=== PATIENT | female | born 1980 | race Hispanic/Latino ===

== ENCOUNTER 2021-04-17 11:04 | Emergency (ER) | payer OTHER ==
[~2021-04-17] VITALS: Ht 165.1 cm; Wt 90.7 kg
[2021-04-17] MEDS ORDERED: HYDROCODONE/ACETAMINOPHEN 10/325 MG TAB PO ONE (12:00)
[2021-04-17 12:05] LABS: BASOPHILS % (AUTO) 0.6 % (0.0-5.0); EOSINOPHILS % (AUTO) 1.5 % (0.0-8.0); HEMATOCRIT 39.7 % (36-48); LYMPHOCYTES % (AUTO) 29.3 % (21.0-51.0); MEAN CORPUSCULAR HEMOGLOBIN 30.6 pg (27.0-33.0); MEAN CORPUSCULAR VOLUME 92.8 fL (79-99); MONOCYTES % (AUTO) 7.9 % (3.0-13.0); NEUTROPHILS % (AUTO) 60.1 % (40.0-77.0); PLATELET COUNT (AUTO) 201 K/uL (130-400); RED BLOOD CELL COUNT(AUTO) 4.28 MIL/uL (4.00-5.50); RED CELL DISTRIBUTION WIDTH 12.6 % (11.0-15.5); WHITE BLOOD COUNT (AUTO) 6.5 K/uL (4.8-10.8)
[2021-04-17 12:14] LABS: CREATININE 0.8 mg/dL (0.5-1.5); POTASSIUM 4.2 mmol/L (3.5-5.1)
[2021-04-17 12:19] LABS: APPEARANCE,URINE Clear (CLEAR); BILIRUBIN,URINE Negative (NEGATIVE); COLOR,URINE Yellow (YELLOW); GLUCOSE, URINE (UA) Negative (NEGATIVE); KETONES,URINE Negative (NEGATIVE); LEUKOCYTE ESTERASE ,URINE Negative (NEGATIVE); NITRATE,URINE Negative (NEGATIVE); OCCULT BLOOD,URINE Negative (NEGATIVE); PROTEIN,URINE Negative (NEGATIVE); UROBILINOGEN,URINE 0.2 mg/dL (0.2-1.0)
[2021-04-17 12:19] LABS: ALBUMIN 3.5 g/dL (3.5-5.0); BILIRUBIN,TOTAL 0.3 mg/dL (0.2-1.0); TOTAL PROTEIN, SERUM 6.8 g/dL (6.0-8.3)
[2021-04-17 12:25] LABS: HCG,QUAL RESULT NEGATIVE (NEGATIVE)
[2021-04-17] MEDS ORDERED: NAPR-1180 PO (13:48)
[2021-04-17] MEDS ORDERED: HYDROCODONE/ACETAMINOPHEN 10/325 MG TAB ONE (13:54)
[2021-04-17 15:00] VITALS: BP 120/78
== END 2021-04-17 15:02 | disposition home or self-care (01) ==
LOC: EDH 11:04
DX: R10.2 Pelvic and perineal pain (principal); R73.09 Other abnormal glucose; E66.9 Obesity, unspecified; Z79.899 Other long term (current) drug therapy
CPT/HCPCS: 36415; 76856; 80053; 81003; 81025; 85025

== ENCOUNTER 2023-06-06 06:11 | Day surgery (SDC) | payer MEDICAID ==
[2023-06-01 08:31] LABS: BASOPHILS # (AUTO) 0.05 K/uL (0.00-0.20); BASOPHILS % (AUTO) 0.8 % (0.0-5.0); EOSINOPHILS % (AUTO) 1.5 % (0.0-8.0); HEMATOCRIT 42.4 % (36-48); IMMATURE GRANULOCYTE ABSOLUTE 0.02 K/uL (0-1); LYMPHOCYTES # (AUTO) 2.1 K/uL (1.0-4.8); MEAN CORPUSCULAR HEMOGLOBIN 29.3 pg (27.0-33.0); MEAN CORPUSCULAR HGB CONC 32.3 g/dL (32.0-36.0); MEAN CORPUSCULAR VOLUME 90.8 fL (79-99); MONOCYTES # (AUTO) 0.5 K/uL (0.1-1.0); MONOCYTES % (AUTO) 7.9 % (3.0-13.0); NEUTROPHILS # (AUTO) 3.9 K/uL (1.8-7.7); NEUTROPHILS % (AUTO) 58.5 % (40.0-77.0); PLATELET COUNT (AUTO) 209 K/uL (130-400); RED BLOOD CELL COUNT(AUTO) 4.67 MIL/uL (4.00-5.50); RED CELL DISTRIBUTION WIDTH 13.2 % (11.0-15.5); WHITE BLOOD COUNT (AUTO) 6.6 K/uL (4.8-10.8)
[2023-06-01 08:46] LABS: CREATININE 0.7 mg/dL (0.5-1.5); POTASSIUM 4.2 mmol/L (3.5-5.1)
[2023-06-01 09:10] VITALS: BP 110/68; PULSE 85; RESP 18
[2023-06-06] VITALS (17 sets, daily range): BP systolic 11–124; BP diastolic 57–77; PULSE 50–83; RESP 11–21
[~2023-06-06] VITALS: Ht 165.1 cm; Wt 89.8 kg
[~2023-06-06 06:11] MED LIST: LIRA0.6P2 SQ; METF-444 PO; ROSU20TA73 PO
[2023-06-06] MEDS ORDERED: CEFAZOLIN SODIUM 2 GM VIAL ONE (06:29)
[2023-06-06] MEDS ORDERED: 0.9%NACL 1000ML 1,000 ML IV ONE (06:29)
[2023-06-06] MEDS ORDERED: LIDOCAINE PF 100MG/5ML (2%) SYRINGE 5ML ONE (07:22)
[2023-06-06] MEDS ORDERED: FENTANYL CITRATE PF 50 MCG/1 ML 2ML VIAL ONE ×2 (07:23→09:04)
[2023-06-06] MEDS ORDERED: ROCURONIUM 10MG/1ML SYR 10 MG/ML ML ONE ×2 (07:23→09:06)
[2023-06-06] MEDS ORDERED: PROPOFOL 10 MG/ML 20ML VIAL IV ONE (07:23)
[2023-06-06] MEDS ORDERED: MIDAZOLAM HCL 1 MG/ML 2ML VIAL ONE (07:23)
[2023-06-06] MEDS ORDERED: BUPIVACAINE/PF 0.25% 30ML VIAL IJ ONE ×2 (07:31→08:47)
[2023-06-06] MEDS ORDERED: DEXAMETHASONE SOD PHOSPHATE 4 MG/ML 1ML VIAL ONE (09:04)
[2023-06-06] MEDS ORDERED: KETOROLAC 30MG VIAL (30MG/ML) ONE ×2 (09:04→09:12)
[2023-06-06] MEDS ORDERED: ONDANSETRON 4MG INJ ONE (09:04)
== END 2023-06-06 11:50 | disposition home or self-care (01) ==
LOC: DAH 06:11
PROVIDERS: ATTEND Surgery
DX: K80.10 Calculus of gallbladder with chronic cholecystitis without obstruction (principal); Z20.822 Contact with and (suspected) exposure to COVID-19; Z90.49 Acquired absence of other specified parts of digestive tract; Z98.891 History of uterine scar from previous surgery; Z82.49 Family history of ischemic heart disease and other diseases of the circulatory system; Z83.3 Family history of diabetes mellitus; Z80.9 Family history of malignant neoplasm, unspecified; Z79.84 Long term (current) use of oral hypoglycemic drugs; Z79.899 Other long term (current) drug therapy; Z98.890 Other specified postprocedural states
CPT/HCPCS: 80048; 84703; 85025; 36415; 47562; 82948 ×2; 81025; 88304; A6260; J1100; A4663; J7030 ×2; J3010 ×2; J3490 ×4; J2250; J2405; J1885 ×2; J0690; C1769 ×3; A4649 ×2; A4215; A4223; A4222; A4221; A4600; J2001; J2704; G0168

== ENCOUNTER 2023-08-05 08:15 | Emergency (ER) | payer MEDICAID, OTHER ==
[~2023-08-05] VITALS: Ht 165.1 cm; Wt 81.6 kg
[2023-08-05 08:16] VITALS: BP 121/71; PULSE 74; RESP 18
[2023-08-05] MEDS ORDERED: POLY10DR22 OP (08:45)
== END 2023-08-05 09:04 | disposition home or self-care (01) ==
LOC: EDH 08:15
DX: H10.89 Other conjunctivitis (principal); H57.12 Ocular pain, left eye; E11.9 Type 2 diabetes mellitus without complications; E66.9 Obesity, unspecified; Z79.84 Long term (current) use of oral hypoglycemic drugs; Z79.899 Other long term (current) drug therapy; Z90.49 Acquired absence of other specified parts of digestive tract; Z98.890 Other specified postprocedural states

== ENCOUNTER 2024-03-04 12:10 | Emergency (ER) | payer BC, OTHER ==
[~2024-03-04] VITALS: Ht 165.1 cm; Wt 86.2 kg
[~2024-03-04 12:10] MED LIST changes: +POLY10DR22 OP
[2024-03-04 12:14] VITALS: BP 109/67; PULSE 84; RESP 17; O2SAT 100
[2024-03-04 12:34] LABS: APPEARANCE,URINE CLEAR (CLEAR); BILIRUBIN,URINE NEGATIVE (NEGATIVE); COLOR,URINE LIGHT-YELLOW (YELLOW); GLUCOSE, URINE (UA) >=1000 mg/dL (NEGATIVE); KETONES,URINE NEGATIVE (NEGATIVE); LEUKOCYTE ESTERASE ,URINE 25 Leu/uL (NEGATIVE); NITRATE,URINE NEGATIVE (NEGATIVE); OCCULT BLOOD,URINE LARGE (NEGATIVE); PH,URINE 5.5 (5.0-8.0); PROTEIN,URINE NEGATIVE (NEGATIVE); UROBILINOGEN,URINE 0.2 mg/dL (0.2-1.0)
[2024-03-04 12:41] LABS: ADD UA MICROSCOPIC YES
[2024-03-04 12:44] LABS: MUCUS,URINE RARE LPF (None Seen); RBC,URINE 51-100 /HPF (0-1); SQUAMOUS EPITHELIAL CELL,UR RARE /HPF (0-2)
[2024-03-04 12:47] LABS: BACTERIA,URINE RARE /HPF (None Seen)
[2024-03-04 12:59] LABS: BASOPHILS # (AUTO) 0.06 K/uL (0.00-0.20); BASOPHILS % (AUTO) 0.7 % (0.0-5.0); EOSINOPHILS # (AUTO) 0.17 K/uL (0.00-0.70); EOSINOPHILS % (AUTO) 2.1 % (0.0-8.0); HEMATOCRIT 40.1 % (36-48); IMMATURE GRANULOCYTE ABSOLUTE 0.03 K/uL (0-1); LYMPHOCYTES # (AUTO) 1.7 K/uL (1.0-4.8); LYMPHOCYTES % (AUTO) 20.6 % (21.0-51.0); MEAN CORPUSCULAR HEMOGLOBIN 31.4 pg (27.0-33.0); MEAN CORPUSCULAR HGB CONC 33.9 g/dL (32.0-36.0); MEAN CORPUSCULAR VOLUME 92.6 fL (79-99); MONOCYTES # (AUTO) 0.6 K/uL (0.1-1.0); MONOCYTES % (AUTO) 7.6 % (3.0-13.0); NEUTROPHILS # (AUTO) 5.7 K/uL (1.8-7.7); NEUTROPHILS % (AUTO) 68.6 % (40.0-77.0); PLATELET COUNT (AUTO) 226 K/uL (130-400); RED BLOOD CELL COUNT(AUTO) 4.33 MIL/uL (4.00-5.50); WHITE BLOOD COUNT (AUTO) 8.3 K/uL (4.8-10.8)
[2024-03-04 13:11] LABS: CREATININE 0.8 mg/dL (0.5-1.0); POTASSIUM 3.8 mmol/L (3.5-5.1)
[2024-03-04 13:27] LABS: ALBUMIN 3.8 g/dL (3.5-5.0); BILIRUBIN,TOTAL 0.4 mg/dL (0.2-1.0); TOTAL PROTEIN, SERUM 7.4 g/dL (6.0-8.3)
[2024-03-04] MEDS ORDERED: CEPH500B PO (14:12)
[2024-03-04] MEDS: CEFTRIAXONE 1G VIAL IVPB STA (14:13)
[2024-03-04] MEDS: LIDOCAINE HCL 1% 20 ML VIAL ONE (14:37)
== END 2024-03-04 14:38 | disposition home or self-care (01) ==
LOC: EDH 12:10
DX: O02.1 Missed abortion (principal); O23.41 Unspecified infection of urinary tract in pregnancy, first trimester; N39.0 Urinary tract infection, site not specified; Z3A.01 Less than 8 weeks gestation of pregnancy; O24.111 Pre-existing type 2 diabetes mellitus, in pregnancy, first trimester; O99.211 Obesity complicating pregnancy, first trimester; Z79.84 Long term (current) use of oral hypoglycemic drugs; Z79.85 Long-term (current) use of injectable non-insulin antidiabetic drugs; Z79.899 Other long term (current) drug therapy; Z90.49 Acquired absence of other specified parts of digestive tract
CPT/HCPCS: 99284; 96365; 76801; 80053; 84703; 84702; 85025; 86900; 86901; 87088; 81001; 36415; J0696

== ENCOUNTER 2024-08-08 09:17 | Emergency (ER) | payer BC ==
[~2024-08-08] VITALS: Ht 165.1 cm; Wt 86.6 kg
[~2024-08-08 09:17] MED LIST changes: +CEPH500B PO; -ROSU20TA73 PO; +ROSU20TA98 PO
[2024-08-08 09:43] LABS: HCG,QUALITATIVE URINE POSITIVE (NEGATIVE)
[2024-08-08 09:44] LABS: BASOPHILS # (AUTO) 0.03 K/uL (0.00-0.20); BASOPHILS % (AUTO) 0.4 % (0.0-5.0); EOSINOPHILS # (AUTO) 0.08 K/uL (0.00-0.70); EOSINOPHILS % (AUTO) 1.2 % (0.0-8.0); HEMATOCRIT 39.5 % (36-48); IMMATURE GRANULOCYTE ABSOLUTE 0.03 K/uL (0-1); LYMPHOCYTES # (AUTO) 1.6 K/uL (1.0-4.8); LYMPHOCYTES % (AUTO) 22.9 % (21.0-51.0); MEAN CORPUSCULAR HEMOGLOBIN 30.8 pg (27.0-33.0); MEAN CORPUSCULAR HGB CONC 33.2 g/dL (32.0-36.0); MEAN CORPUSCULAR VOLUME 92.9 fL (79-99); MONOCYTES # (AUTO) 0.6 K/uL (0.1-1.0); MONOCYTES % (AUTO) 8.1 % (3.0-13.0); NEUTROPHILS # (AUTO) 4.6 K/uL (1.8-7.7); PLATELET COUNT (AUTO) 188 K/uL (130-400); RED BLOOD CELL COUNT(AUTO) 4.25 MIL/uL (4.00-5.50); RED CELL DISTRIBUTION WIDTH 13.2 % (11.0-15.5); WHITE BLOOD COUNT (AUTO) 6.8 K/uL (4.8-10.8)
[2024-08-08 09:52] LABS: CREATININE 0.8 mg/dL (0.5-1.0); POTASSIUM 3.9 mmol/L (3.5-5.1)
[2024-08-08 10:11] LABS: APPEARANCE,URINE CLEAR (CLEAR); BILIRUBIN,URINE NEGATIVE (NEGATIVE); COLOR,URINE LIGHT-YELLOW (YELLOW); GLUCOSE, URINE (UA) >=1000 mg/dL (NEGATIVE); KETONES,URINE NEGATIVE (NEGATIVE); LEUKOCYTE ESTERASE ,URINE NEGATIVE Leu/uL (NEGATIVE); NITRATE,URINE NEGATIVE (NEGATIVE); OCCULT BLOOD,URINE NEGATIVE (NEGATIVE); PH,URINE 7.5 (5.0-8.0); PROTEIN,URINE NEGATIVE (NEGATIVE); SQUAMOUS EPITHELIAL CELL,UR RARE /HPF (0-2); UROBILINOGEN,URINE 0.2 mg/dL (0.2-1.0); WBC,URINE 0-1 /HPF (0-1)
[2024-08-08] MEDS: 0.9%NACL 1000ML 1,000 ML IV ONE (10:39)
[2024-08-08 11:55] VITALS: BP 115/72; PULSE 80; RESP 16; TEMP 98.4; O2SAT 100
== END 2024-08-08 12:07 | disposition home or self-care (01) ==
LOC: EDH 09:17
DX: O20.0 Threatened abortion (principal); R10.2 Pelvic and perineal pain; E11.9 Type 2 diabetes mellitus without complications; E66.9 Obesity, unspecified; Z3A.01 Less than 8 weeks gestation of pregnancy; Z79.84 Long term (current) use of oral hypoglycemic drugs; Z79.85 Long-term (current) use of injectable non-insulin antidiabetic drugs; Z79.899 Other long term (current) drug therapy; Z90.49 Acquired absence of other specified parts of digestive tract; Z98.890 Other specified postprocedural states
CPT/HCPCS: 99284; 96360; 76801; 80048; 84703; 84702; 85025; 81001; 81025; 36415; J7030

== ENCOUNTER 2024-11-01 21:40 | Emergency (ER) | payer BC ==
[~2024-11-01] VITALS: Ht 165.1 cm; Wt 84.8 kg
--- NOTE | 2024-11-01 21:49 | ERN ---
ED Note History of Present Illness Stated Complaint: RASH WITH ITCHING IN BETWEEN LEGS AND GROIN AREA Chief Complaint: Skin Rash/Abscess Time Seen by MD: 21:44 Dictation: This is a 44-year-old female who presented to the emergency room with complaints of itchy rash in the groin area, medial thighs, popliteal folds. All this started about 24 hours ago. She denied eating anything unusual. No history of any change of soaps or detergents. 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 No fever chills or rigors no joint pains. Temperature 98.2 pulse 82 respirations 20 pulse oximetry 100% on room air Chronic medical problems include diabetes mellitus and hypercholesterolemia Allergies: Coded Allergies: No Known Allergies (Unverified Allergy, Unknown, 04/17/21) Home Meds Active Scripts Miconazole Nitrate (Antifungal Cream) 2 % Cream..g., 1 APPL TP BID for 14 Days, #14 GM 0 Refills Prov:REYES CALHOUN MD 11/01/24 Zinc Oxide (Desitin) 13 % Cream..g., 1 APPL TP QID for 5 Days, #57 GM 0 Refills Prov:REYES CALHOUN MD 11/01/24 Cephalexin Monohydrate (Keflex) 500 Mg Cap, 500 MG PO BID for 7 Days, #14 CAP Prov:OLEKSANDR VELA 03/04/24 Polymyxin B Sulf/Trimethoprim (Polytrim Eye Drops) 10,000 Unit-1 Mg/Ml Drops, 10 ML OP every three hours for 10 Days, #1 DROP 0 Refills Prov:DALLIN SCHWAB Sr., MD 08/05/23 Reported Medications Liraglutide (Victoza 3-Franco) 0.6 Mg/0.1 Ml Pen.injctr, 1.8 ML SQ DAILY 06/01/23 Rosuvastatin Calcium (Rosuvastatin Calcium) 20 Mg Tablet, 1 TAB PO DAILY for cholesterol 06/01/23 Metformin HCl (Metformin HCl) 500 Mg Tablet, 1 TAB PO BID 06/01/23 Past Medical History Past Medical History: Diabetes-Type II, High Cholesterol Additional Past Medical Hx: Obese Surgical History: Appendectomy, Family History: Negative Social History: Negative History: Not Applicable : 8 Para: 4 Aborts: 3 RN Note Reviewed/Agreed w/PFSH: Yes Review of System Dictation Constitutional: Negative for fever,chills, and weight loss Eyes: Negative for injury, pain,redness, and discharge ENT: Negative for injury,pain or swelling Cardiovascular: Negative for chest pain, palpitations, and edema Respiratory: Negative for shortness of breath, cough, and wheezing, Abdomen/GI: Negative for abdominal pain, nausea, vomiting, diarrhea, and constipation Back: Negative for injury and pain : Negative for injury, bleeding and discharge MS/Extremity: Negative for injury and deformity Skin: Positive for rash, with the itching in inguinal areas medial thighs and popliteal folds Neuro: Negative for headache, weakness, numbness, tingling, and seizure Psych: Negative for suicide ideation, homicidal ideation, and hallucinations Initial Vital Sign VS Vital Signs Date Time Temp Pulse Resp B/P (MAP) Pulse Ox O2 Delivery O2 Flow Rate FiO2 11/01/24 21:42 98.2 82 20 100 Room Air 11/01/24 22:37 127/65 0 21 Physical Exam Dictation General: awake, alert, NAD Head/Face: Normocephalic, atraumatic Eyes: PERRL, EOMI, vision at baseline ENT: oral cavity clear, TMs clear, no signs of infection Neck: Trachea midline, supple, no nuchal rigidity Cardiovascular: RRR, normal S1/S2, No MRGs, no JVD Respiratory: CTAB, no respiratory distress, No rales or wheezes Abdomen: Soft, non-tender, non-distended, normal bowel sounds, no guarding or rebound. Skin: Warm, dry, normal turgor, mild redness with raised edges in the inguinal area above the mons pubis, medial thighs and also popliteal folds MS/Extremity: Pulses equal, no cyanosis, neurovascular intact, FROM Neuro: COAx4, GCS 15, strength 5/5, CN 2-12 intact, normal cerebellar exam, normal gait, Psych: Normal behavior, mood, and affect normal Extremities-trace edema without any palpable cords, Homans sign is negative Results (Laboratory/Radiology) Laboratory/Radiology Laboratory Tests Test 11/01/24 21:58 White Blood Count 9.2 K/uL (4.8-10.8) Red Blood Count 4.31 MIL/uL (4.00-5.50) Hemoglobin 12.8 g/dL (12.0-16.0) Hematocrit 38.7 % (36-48) Mean Corpuscular Volume 89.8 fL (79-99) Mean Corpuscular Hemoglobin 29.7 pg (27.0-33.0) Mean Corpuscular Hemoglobin Concent 33.1 g/dL (32.0-36.0) Red Cell Distribution Width 12.6 % (11.0-15.5) Platelet Count 213 K/uL (130-400) Mean Platelet Volume 11.1 fL (7.5-10.5) H Immature Granulocyte % (Auto) 0.2 % (0-1) Neutrophils (%) (Auto) 55.8 % (40.0-77.0) Lymphocytes (%) (Auto) 33.3 % (21.0-51.0) Monocytes (%) (Auto) 9.1 % (3.0-13.0) Eosinophils (%) (Auto) 1.2 % (0.0-8.0) Basophils (%) (Auto) 0.4 % (0.0-5.0) Neutrophils # (Auto) 5.1 K/uL (1.8-7.7) Lymphocytes # (Auto) 3.1 K/uL (1.0-4.8) Monocytes # (Auto) 0.8 K/uL (0.1-1.0) Eosinophils # (Auto) 0.11 K/uL (0.00-0.70) Basophils # (Auto) 0.04 K/uL (0.00-0.20) Absolute Immature Granulocyte (auto 0.02 K/uL (0-1) Nucleated Red Blood Cells 0.0 % (0.0-0.19) Labs Reviewed?: Yes ED Course ED Course Orders Procedure Category Date Status Time Cbc With Differential LAB 11/01/24 Complete 21:49 Methylprednisolone PHA 11/01/24 Complete Succ 125mg (Solu-Medr 22:30 Hydroxyzine 10mg Tab PHA 11/01/24 In Process (Atarax 10mg Tab) 22:30 Current Medications Medications (Trade) Dose Ordered Sig/Rhoda Route PRN Reason Start Time Stop Time Status Last Admin Dose Admin Hydroxyzine HCl (ATArax 10MG TAB) 10 mg ONCE PO 11/01/24 22:30 12/01/24 22:29 11/01/24 22:27 Methylprednisolone Sodium Succinate (Solu-medROL 125MG) 60 mg ONCE ONCE IVP 11/01/24 22:30 11/01/24 22:31 DC 11/01/24 22:27 Vital Signs Date Time Temp Pulse Resp B/P (MAP) Pulse Ox O2 Delivery O2 Flow Rate FiO2 11/01/24 22:37 98.2 81 18 127/65 98 Room Air* 0 21 11/01/24 21:42 98.2 82 20 100 Room Air We will perform diagnostic labs, administer medications according to the patient's complaint. Once the results are available, will review and personally interpreted the labs to rule out any acute life-threatening emergency the trach require immediate intervention and treatment. I will then re-evaluate the patient after treatment and diagnostic exams have return to determine whether the patient requires any further testing, can safely be discharged home or need further admission to hospital for additional treatment and evaluation. We will obtain a CBC for any eosinophilia I had a long discussion with her and explained to her that she sits since she use some liniment from [place], I am unable to see the original rash. It is conceivable that this is likely intertrigo. Medical Decision Making MDM MDM: Differential diagnosis: Jock itch, intertrigo, tinea inguinal, tinea corporis Rationale: Tests considered and ordered secondary to shared decision making include: Previous outside records reviewed: Old ER visits. Risk of complication and/or morbidity or mortality of patient management: None Medications-Per medication reconciliation Need for hospitalization: Patient does not meet criteria for hospitalization. Need for emergency major/minor surgery: No There are no social concerns with this patient. Prescription drug management Prescriptions will include symptomatic care Patient's prior external medical records from other ER visits were reviewed by me as indicated. Prior testing and results from previous visits were reviewed. Prior tests were taken into account with medical decision making and resource utilization, independent historian/historians were used to obtain complete medical history. I independently interpreted the test that were performed, results were reviewed by me and considered findings on radiology if ordered. Medical management and examination interpretation discussions were had by me with other qualified healthcare professionals as indicated for the patient's care. Problem List Problem List: (1) Skin rash (2) Diabetes mellitus (3) Hyperlipidemia (4) Jock itch (5) Intertrigo DX & DISP Disposition: Discharge Departure Impression: Primary Impression: Skin rash Additional Impressions: Diabetes mellitus, Hyperlipidemia, Intertrigo, Jock itch Condition: Stable Scripts Miconazole Nitrate (Antifungal Cream) 2 % Cream..g. 1 APPL TP BID for 14 Days, #14 GM 0 Refills Prov: REYES CALHOUN MD 11/01/24 Zinc Oxide (Desitin) 13 % Cream..g. 1 APPL TP QID for 5 Days, #57 GM 0 Refills Prov: REYES CALHOUN MD 11/01/24 Additional Instructions: Patient and the caregiver have been informed of all the diagnostic tests and the imaging conducted during the today's visit to the emergency room and has verbalized understanding of the results I have personally reviewed and interpreted all diagnostic exams performed here in the ER today as well as the vital signs documented by the nursing staff. The patient is now being discharged to home and should follow up with the primary care physician or the specialist as directed by the ER staff. Follow-up with primary care provider in 1 to 2 days. Take medications as directed here in the emergency room. Okay to continue home medications unless otherwise discussed during your visit in the emergency room today. Return to your nearest emergency room if symptoms worsen or if there is no improvement. Call 911 if you need immediate assistance. Take Tylenol or Motrin [id number] as needed and if no contraindications are present. Increase oral hydration. A wound culture or urine culture was ordered here in the emergency room department please follow-up with primary care provider and advise them to get repeat ports from our facility. If you had any Elder wrap/splints that were applied here, please do not remove them until you see your primary care or specialty. Referrals: IDANIA WILLINGHAM DO (PCP) REYES CALHOUN MD Nov 01, 2024 21:49
[2024-11-01 22:04] LABS: BASOPHILS # (AUTO) 0.04 K/uL (0.00-0.20); BASOPHILS % (AUTO) 0.4 % (0.0-5.0); EOSINOPHILS # (AUTO) 0.11 K/uL (0.00-0.70); EOSINOPHILS % (AUTO) 1.2 % (0.0-8.0); HEMATOCRIT 38.7 % (36-48); IMMATURE GRANULOCYTE ABSOLUTE 0.02 K/uL (0-1); LYMPHOCYTES # (AUTO) 3.1 K/uL (1.0-4.8); LYMPHOCYTES % (AUTO) 33.3 % (21.0-51.0); MEAN CORPUSCULAR HEMOGLOBIN 29.7 pg (27.0-33.0); MEAN CORPUSCULAR HGB CONC 33.1 g/dL (32.0-36.0); MEAN CORPUSCULAR VOLUME 89.8 fL (79-99); MONOCYTES # (AUTO) 0.8 K/uL (0.1-1.0); MONOCYTES % (AUTO) 9.1 % (3.0-13.0); NEUTROPHILS # (AUTO) 5.1 K/uL (1.8-7.7); NEUTROPHILS % (AUTO) 55.8 % (40.0-77.0); PLATELET COUNT (AUTO) 213 K/uL (130-400); RED BLOOD CELL COUNT(AUTO) 4.31 MIL/uL (4.00-5.50); RED CELL DISTRIBUTION WIDTH 12.6 % (11.0-15.5); WHITE BLOOD COUNT (AUTO) 9.2 K/uL (4.8-10.8)
[2024-11-01] MEDS ORDERED: MICO14CR6 TP (22:26)
[2024-11-01] MEDS ORDERED: ZINC57OI3 TP (22:26)
[2024-11-01] MEDS: hydrOXYzine 10 MG TABLET PO SCH (22:27)
[2024-11-01] MEDS: Solu-medROL 125MG VIAL IVP ONE (22:27)
[2024-11-01 23:24] VITALS: BP 118/65; PULSE 81; RESP 18; TEMP 98.2; O2SAT 100
== END 2024-11-01 23:24 | disposition home or self-care (01) ==
LOC: EDH 21:40
DX: R21 Rash and other nonspecific skin eruption (principal); E11.9 Type 2 diabetes mellitus without complications; E66.9 Obesity, unspecified; E78.00 Pure hypercholesterolemia, unspecified; Z79.84 Long term (current) use of oral hypoglycemic drugs; Z79.85 Long-term (current) use of injectable non-insulin antidiabetic drugs; Z79.899 Other long term (current) drug therapy; Z90.49 Acquired absence of other specified parts of digestive tract
CPT/HCPCS: 99284; 96374; 85025; 36415; J2919